=== PATIENT | female | born 1940 | race Caucasian/White ===

== ENCOUNTER 2018-09-15 05:32 | Inpatient (IN) | payer MEDICARE, OTHER ==
[2018-09-09 15:35] LABS: BASOPHILS % (AUTO) 0.6 % (0-1); EOSINOPHILS # (AUTO) 0.2 X10'3 (0-0.9); EOSINOPHILS % (AUTO) 2.6 % (0-6); LYMPHOCYTES # (AUTO) 2.2 X10'3 (1.1-4.8); LYMPHOCYTES % (AUTO) 31.4 % (21-51); MEAN CORPUSCULAR HGB CONC 32.6 % (33.0-36.5); MEAN CORPUSCULAR VOLUME 97.9 FL (78-98); MONOCYTES # (AUTO) 0.6 X10'3 (0-0.9); MONOCYTES % (AUTO) 9.1 % (2-12); NEUTROPHILS % (AUTO) 56.3 % (42-75); PRE OP HEMATOCRIT 41.3 % (35.0-45.0); PRE OP HEMOGLOBIN 13.5 g/dL (12.0-16.0); PRE OP PLATELET COUNT 325 X10'3 (140-440); RED BLOOD COUNT 4.22 X10'6 (4.20-5.60); RED CELL DISTRIBUTION WIDTH 12.5 % (11.5-14.5)
[2018-09-09 15:42] LABS: ALBUMIN 3.7 G/DL (3.4-5.0); ALBUMIN/GLOBULIN RATIO 0.9 (1.1-1.5); ALKALINE PHOSPHATASE 71 IU/L (46-116); BLOOD UREA NITROGEN 16 MG/DL (7-18); BUN/CREATININE RATIO 17.6 (6.6-38.0); CHLORIDE 98 MMOL/L (99-107); CREATININE 0.91 MG/DL (0.40-0.90); PRE OP ALT 21 U/L (30-65); PRE OP ANION GAP 10 (8-16); PRE OP AST 14 U/L (10-37); PRE OP BILIRUB, TOTAL 0.2 MG/DL (0.0-1.0); PRE OP GLUCOSE 93 MG/DL (70-104); PRE OP SODIUM 135 MMOL/L (135-145); TOTAL CARBON DIOXIDE 27.5 MMOL/L (24-32); TOTAL PROTEIN 7.9 G/DL (6.4-8.2); eGFR 60 ML/MIN
[2018-09-09 15:44] LABS: PRE OP POTASSIUM 3.2 MMOL/L (3.4-5.1)
[2018-09-15] VITALS (19 sets, daily range): BP systolic 100–146; BP diastolic 67–87
[~2018-09-15] VITALS: Ht 160 cm; Wt 89.3 kg
[~2018-09-15 05:32] MED LIST: CETI10TA14 PO; CHOL200016 PO; FAMO20TA8 PO; HYDR50TA3 PO; IBUP-1984 PO; LEVO25TA7 PO; VANCOMYCIN INJ 1000 MG in NORMAL SALINE 250ml IV.SOLN IV ONE; cefazolin/dext.iso 2gm/100 ML IV ONE; famotidine 20mg tablet PO ONE; ringers solution, lacted 1,000 ML IV SCH; tranexamic acid inj. 1,000 MG in normal saline 100 ML IV ONE
[2018-09-15 06:36] LABS: ISTAT CREATININE 0.9 mg/dL (0.6-1.1); ISTAT HGB 13.3 g/dl (12.0-16.0); ISTAT IONIZED CALCIUM 1.25 mmol/L (1.03-1.32)
[2018-09-15] MEDS ORDERED: ceFAZolin 1000mg inj ONE (06:47)
[2018-09-15] MEDS ORDERED: cloNIDine hcl/PF 100mcg/ml inj ONE (07:17)
[2018-09-15] MEDS ORDERED: ROPIVAcaine 0.5% (5mg/ml) 30ml vial ONE (07:18)
[2018-09-15] MEDS ORDERED: tetracaine 1% (10mg/ml) pres. free inj. ONE (07:18)
[2018-09-15] MEDS ORDERED: MIDAZolam 1mg/ml 10ml vial ONE (07:19)
[2018-09-15] MEDS ORDERED: fentaNYL/PF 50MCG/1 ML 2ML syringe ONE (07:20)
[2018-09-15] MEDS ORDERED: BUPIVAcaine/dex-water/PF 7.5 mg/ml 2ml ampul ONE (07:21)
[2018-09-15] MEDS ORDERED: propofol inj 20 ML IV ONE (07:46)
[2018-09-15] MEDS ORDERED: ringers solution, lacted 1,000 ML IV SCH (08:22)
[2018-09-15] MEDS ORDERED: proCHLORperazine 10 MG/2 ml inj IV PRN (08:25)
[2018-09-15] MEDS ORDERED: morphine 4 MG/ML inj SYRINge IV PRN ×2 (08:25)
[2018-09-15] MEDS ORDERED: meperidine/PF 25mg/ml syringe IV PRN ×3 (08:25)
[2018-09-15] MEDS ORDERED: ondansetron/PF 4mg/2ml inj IV PRN ×2 (08:25→10:10)
--- NOTE | 2018-09-15 10:05 | NUR ---
Received from OR via bed, accompanied by Anesthesiologist. Report received. Initial physical assessment done and recorded.
[2018-09-15] MEDS ORDERED: magnesium hydroxide 30ml (MOM) UD suspension PO PRN (10:10)
[2018-09-15] MEDS ORDERED: acetaminophen 325mg tablet PO PRN (10:10)
[2018-09-15] MEDS ORDERED: diphenhydrAMINE 25mg capsule PO PRN ×2 (10:10)
[2018-09-15] MEDS ORDERED: bisacodyl 10mg suppository rectal RC PRN (10:10)
[2018-09-15] MEDS ORDERED: HYDROcodone/acetaminophen 10/325mg tab PO PRN (10:10)
--- NOTE | 2018-09-15 11:05 | NUR ---
Discharge criteria met, report to receiving floor. Transferred to room in stable condition.
[2018-09-15] MEDS: potassium Cl 20mEq in NS 1,000 ML IV SCH (11:54)
[2018-09-15] MEDS: HYDROcodone/acetaminophen 10/325mg tab PO PRN ×3 (12:25→21:33)
[2018-09-15] MEDS: ceFAZolin 1GM/D5W- ADD-VANTAGE 50 ML IV SCH (15:25)
[2018-09-15] MEDS: HYDROmorphone inj. 0.5 MG/0.5 ML DISP.SYRIN IV PRN (15:25)
[2018-09-15] MEDS: aspirin 81mg tablet.DR PO SCH (17:32)
--- NOTE | 2018-09-15 18:05 | NUR ---
Problems reprioritized. Patient report given, questions answered & plan of care reviewed with Hazel DAS.
--- NOTE | 2018-09-15 18:30 | NUR ---
Patient in room ORTHO 4021. I have received report from aba Meade and had the opportunity to ask questions and assume patient care.
[2018-09-15] MEDS ORDERED: vancomycin/NS 1 GM ADD-VANTAGE 250 ML IV SCH (20:00)
[2018-09-15] MEDS: famotidine 20mg tablet PO SCH (20:20)
[2018-09-15] MEDS: sennosides 8.6mg tablet PO SCH (20:20)
[2018-09-16] MEDS: ceFAZolin 1GM/D5W- ADD-VANTAGE 50 ML IV SCH (00:17)
[2018-09-16] MEDS: HYDROcodone/acetaminophen 10/325mg tab PO PRN ×5 (01:31→19:58)
[2018-09-16] MEDS: potassium Cl 20mEq in NS 1,000 ML IV SCH ×2 (01:32→12:50)
[2018-09-16 02:09] VITALS: BP 120/81
--- NOTE | 2018-09-16 06:31 | NUR ---
Problems reprioritized. Patient report given, questions answered & plan of care reviewed with PIPPA BARTH.
--- NOTE | 2018-09-16 06:34 | NUR ---
Received report from Hazel DAS
[2018-09-16 06:36] LABS: BASOPHILS % (AUTO) 0.1 % (0-1); EOSINOPHILS # (AUTO) 0.1 X10'3 (0-0.9); EOSINOPHILS % (AUTO) 1.1 % (0-6); HEMATOCRIT 31.1 % (35.0-45.0); HEMOGLOBIN 10.7 g/dl (12.0-16.0); LYMPHOCYTES # (AUTO) 1.2 X10'3 (1.1-4.8); LYMPHOCYTES % (AUTO) 10.3 % (21-51); MEAN CORPUSCULAR HEMOGLOBIN 33.7 PG (27.0-31.0); MEAN CORPUSCULAR HGB CONC 34.3 % (33.0-36.5); MEAN CORPUSCULAR VOLUME 98.2 FL (78-98); MEAN PLATELET VOLUME 8.8 FL (7.4-10.4); MONOCYTES % (AUTO) 8.6 % (2-12); NEUTROPHILS # (AUTO) 9.1 X10'3 (1.8-7.7); NEUTROPHILS % (AUTO) 79.9 % (42-75); PLATELET COUNT 259 X10'3 (140-440); RED BLOOD COUNT 3.17 X10'6 (4.20-5.60); RED CELL DISTRIBUTION WIDTH 13.5 % (11.5-14.5); WHITE BLOOD COUNT 11.4 X10'3 (4.5-11.0)
[2018-09-16 06:54] LABS: ALANINE AMINOTRANSFERASE 16 U/L (12-78); ALBUMIN 2.8 G/DL (3.4-5.0); ALBUMIN/GLOBULIN RATIO 0.8 (1.1-1.5); ALKALINE PHOSPHATASE 51 IU/L (46-116); ANION GAP 10 (8-16); ASPARTATE AMINO TRANSFERASE 14 U/L (10-37); BILIRUBIN,TOTAL 0.3 MG/DL (0.1-1.0); BLOOD UREA NITROGEN 14 MG/DL (7-18); BUN/CREATININE RATIO 14.1 (6.6-38.0); CALCIUM 8.2 MG/DL (8.5-10.1); CHLORIDE 103 MMOL/L (99-107); CREATININE 0.99 MG/DL (0.40-0.90); GLUCOSE 123 MG/DL (70-104); POTASSIUM 4.4 MMOL/L (3.5-5.1); SODIUM 138 MMOL/L (135-145); TOTAL CARBON DIOXIDE 25.2 MMOL/L (24-32); TOTAL PROTEIN 6.2 G/DL (6.4-8.2); eGFR 54 ML/MIN
[2018-09-16] MEDS: cetirizine 10mg tablet PO SCH (07:34)
[2018-09-16] MEDS: aspirin 81mg tablet.DR PO SCH ×2 (07:34→18:30)
[2018-09-16] MEDS: famotidine 20mg tablet PO SCH ×2 (07:35→19:59)
[2018-09-16] MEDS: levoTHYROXINE 25mcg tablet PO SCH (07:35)
[2018-09-16] MEDS: HYDROchlorothiazide 25mg tablet PO SCH (07:35)
[2018-09-16 08:47] VITALS: BP 112/69
[2018-09-16 10:00] VITALS: BP 119/80
--- NOTE | 2018-09-16 11:07 | NUR ---
Joint replacement consult: Pt not in room working w/ PT during RD visit; written/verbal high protein ed w/ RD contact information left at bedside. Will monitor for additional reinforcement needs post-op. Addendum: 09/16/18 at [address] Amended: Links added.
[2018-09-16] MEDS: HYDROmorphone inj. 0.5 MG/0.5 ML DISP.SYRIN IV PRN (16:13)
[2018-09-16 18:00] VITALS: BP 132/87
--- NOTE | 2018-09-16 18:30 | NUR ---
Patient in room ORTHO 4021. I have received report from aba Villasenor and had the opportunity to ask questions and assume patient care.
[2018-09-16] MEDS: sennosides 8.6mg tablet PO SCH (20:00)
[2018-09-16 22:00] VITALS: BP 142/98
--- NOTE | 2018-09-16 22:30 | NUR ---
left message at Dr Miles's answering service regarding pt's pain/spasm and anxiety. waiting for call back.
[2018-09-16] MEDS ORDERED: ketorolac trometh. 30mg/ml inj. IM SCH (22:40)
--- NOTE | 2018-09-16 23:20 | NUR ---
still waiting for pharmacy to verify toradol.
[2018-09-16] MEDS: ketorolac trometh. 30mg/ml inj. IV SCH (23:21)
--- NOTE | 2018-09-16 23:23 | NUR ---
pt refused scd due to pressure/pain
--- NOTE | 2018-09-17 00:16 | NUR ---
pt refused pain med for now. "i don't want to take any more pain med." pt looks painful and still having spasm but she states pain is better. i recommended to take at least one norco but pt refused. i'll take in the morning. will continue to monitor.
--- NOTE | 2018-09-17 01:32 | NUR ---
PHARMACY ADVISED TO SKIP 0200 TORADOL SINCE PT RECEIVED AT 2320.
[2018-09-17] MEDS: ketorolac trometh. 30mg/ml inj. IV SCH ×4 (01:33→20:34)
[2018-09-17] MEDS: potassium Cl 20mEq in NS 1,000 ML IV SCH (02:10)
[2018-09-17] MEDS: HYDROcodone/acetaminophen 10/325mg tab PO PRN (05:20)
[2018-09-17 05:58] LABS: BASOPHILS % (AUTO) 0.3 % (0-1); EOSINOPHILS # (AUTO) 0.1 X10'3 (0-0.9); EOSINOPHILS % (AUTO) 0.9 % (0-6); HEMATOCRIT 28.5 % (35.0-45.0); HEMOGLOBIN 9.7 g/dl (12.0-16.0); LYMPHOCYTES # (AUTO) 2.1 X10'3 (1.1-4.8); LYMPHOCYTES % (AUTO) 20.1 % (21-51); MEAN CORPUSCULAR HEMOGLOBIN 33.2 PG (27.0-31.0); MEAN CORPUSCULAR VOLUME 97.8 FL (78-98); MEAN PLATELET VOLUME 9.1 FL (7.4-10.4); MONOCYTES # (AUTO) 1.4 X10'3 (0-0.9); MONOCYTES % (AUTO) 13.7 % (2-12); NEUTROPHILS # (AUTO) 6.9 X10'3 (1.8-7.7); PLATELET COUNT 219 X10'3 (140-440); RED BLOOD COUNT 2.91 X10'6 (4.20-5.60); RED CELL DISTRIBUTION WIDTH 13.1 % (11.5-14.5); WHITE BLOOD COUNT 10.6 X10'3 (4.5-11.0)
[2018-09-17 06:00] VITALS: BP 118/73
[2018-09-17 06:18] LABS: ALANINE AMINOTRANSFERASE 14 U/L (12-78); ALBUMIN 2.6 G/DL (3.4-5.0); ALBUMIN/GLOBULIN RATIO 0.8 (1.1-1.5); ALKALINE PHOSPHATASE 48 IU/L (46-116); ANION GAP 7 (8-16); ASPARTATE AMINO TRANSFERASE 13 U/L (10-37); BILIRUBIN,TOTAL 0.4 MG/DL (0.1-1.0); BLOOD UREA NITROGEN 11 MG/DL (7-18); BUN/CREATININE RATIO 11.3 (6.6-38.0); CALCIUM 8.1 MG/DL (8.5-10.1); CHLORIDE 99 MMOL/L (99-107); CREATININE 0.97 MG/DL (0.40-0.90); GLUCOSE 98 MG/DL (70-104); POTASSIUM 3.3 MMOL/L (3.5-5.1); SODIUM 134 MMOL/L (135-145); TOTAL CARBON DIOXIDE 28.2 MMOL/L (24-32); eGFR 55 ML/MIN
--- NOTE | 2018-09-17 06:26 | NUR ---
Problems reprioritized. Patient report given, questions answered & plan of care reviewed with PIPPA URIBE.
--- NOTE | 2018-09-17 06:50 | NUR ---
Patient in room ORTHO 4021. I have received report from Hazel DAS and had the opportunity to ask questions and assume patient care.
[2018-09-17] MEDS ORDERED: potassium Cl 20 mEq SR tablet PO PRN ×2 (07:00→07:15)
[2018-09-17] MEDS ORDERED: POTASSIUM 40MEQ/500ML NS *****PERIPHERAL LINE REPLACE IV PRN (07:15)
[2018-09-17] MEDS ORDERED: [UNRECOGNIZED DRUG - REMARK] IV SCH (08:00)
[2018-09-17] MEDS: levoTHYROXINE 25mcg tablet PO SCH (08:03)
[2018-09-17] MEDS: potassium Cl 20 mEq SR tablet PO PRN ×3 (08:03→17:01)
[2018-09-17] MEDS: cetirizine 10mg tablet PO SCH (08:04)
[2018-09-17] MEDS: aspirin 81mg tablet.DR PO SCH ×2 (08:05→17:01)
[2018-09-17] MEDS: famotidine 20mg tablet PO SCH ×2 (08:05→20:33)
[2018-09-17 10:00] VITALS: BP 100/70
--- NOTE | 2018-09-17 11:21 | NUR ---
Pt seen by ANTONINO for verbal high protein ed reinforcement w/ RD contact information provided. Declines additional proteins at this time. Addendum: 09/17/18 at [address] Amended: Links added.
[2018-09-17] MEDS: HYDROchlorothiazide 25mg tablet PO SCH (12:07)
[2018-09-17 15:00] VITALS: BP 119/73
[2018-09-17 18:00] VITALS: BP 117/69
--- NOTE | 2018-09-17 18:15 | NUR ---
Patient in room ORTHO 4021. I have received report from aba Alex and had the opportunity to ask questions and assume patient care.
--- NOTE | 2018-09-17 18:26 | NUR ---
Problems reprioritized. Patient report given, questions answered & plan of care reviewed with raissa DAS.
[2018-09-17] MEDS: sennosides 8.6mg tablet PO SCH (20:33)
[2018-09-17 22:00] VITALS: BP 130/79
[2018-09-18 06:00] VITALS: BP 129/79
--- NOTE | 2018-09-18 06:00 | NUR ---
Patient in room ORTHO 4021. I have received report from Hazel DAS and had the opportunity to ask questions and assume patient care.
[2018-09-18] MEDS: HYDROcodone/acetaminophen 10/325mg tab PO PRN ×2 (06:07→11:02)
--- NOTE | 2018-09-18 06:30 | NUR ---
Problems reprioritized. Patient report given, questions answered & plan of care reviewed with PIPPA FARFAN.
[2018-09-18 07:06] LABS: ALANINE AMINOTRANSFERASE 14 U/L (12-78); ALBUMIN 2.6 G/DL (3.4-5.0); ALBUMIN/GLOBULIN RATIO 0.7 (1.1-1.5); ALKALINE PHOSPHATASE 70 IU/L (46-116); ANION GAP 9 (8-16); ASPARTATE AMINO TRANSFERASE 18 U/L (10-37); BILIRUBIN,TOTAL 0.5 MG/DL (0.1-1.0); BLOOD UREA NITROGEN 18 MG/DL (7-18); BUN/CREATININE RATIO 15.8 (6.6-38.0); CALCIUM 8.4 MG/DL (8.5-10.1); CHLORIDE 99 MMOL/L (99-107); CREATININE 1.14 MG/DL (0.40-0.90); GLUCOSE 106 MG/DL (70-104); POTASSIUM 4.2 MMOL/L (3.5-5.1); SODIUM 133 MMOL/L (135-145); TOTAL CARBON DIOXIDE 24.7 MMOL/L (24-32); TOTAL PROTEIN 6.5 G/DL (6.4-8.2); eGFR 46 ML/MIN
[2018-09-18] MEDS: cetirizine 10mg tablet PO SCH (07:17)
[2018-09-18] MEDS: HYDROchlorothiazide 25mg tablet PO SCH (07:17)
[2018-09-18] MEDS: levoTHYROXINE 25mcg tablet PO SCH (07:17)
[2018-09-18] MEDS: famotidine 20mg tablet PO SCH (07:17)
[2018-09-18] MEDS: aspirin 81mg tablet.DR PO SCH (07:17)
[2018-09-18 09:18] LABS: BASOPHILS % (AUTO) 0 % (0-1); EOSINOPHILS % (AUTO) 0.1 % (0-6); HEMOGLOBIN 11.3 g/dl (12.0-16.0); LYMPHOCYTES # (AUTO) 1.1 X10'3 (1.1-4.8); LYMPHOCYTES % (AUTO) 7.3 % (21-51); MEAN CORPUSCULAR HEMOGLOBIN 33.5 PG (27.0-31.0); MEAN CORPUSCULAR HGB CONC 34.1 % (33.0-36.5); MEAN CORPUSCULAR VOLUME 98.3 FL (78-98); MONOCYTES % (AUTO) 6.8 % (2-12); NEUTROPHILS % (AUTO) 85.8 % (42-75); PLATELET COUNT 271 X10'3 (140-440); RED BLOOD COUNT 3.36 X10'6 (4.20-5.60); RED CELL DISTRIBUTION WIDTH 13.6 % (11.5-14.5); WHITE BLOOD COUNT 15.1 X10'3 (4.5-11.0)
--- NOTE | 2018-09-18 12:03 | NUR ---
Patient discharged to [facility] today at 11:55. Patient stable for transfer, all belongings sent with patient, IV taken out. ON-Q pump discontinued. Report called to Meryl at [facility]
== END 2018-09-18 11:45 | DRG 470 ==
LOC: PAS IN 05:32 → EDSTATUS 07:30 → ORTHO 4S 11:15
PROVIDERS: ADMIT Orthopaedic Surgery; ATTEND Orthopaedic Surgery
PROC: 3E0T3BZ Introduction of Anesthetic Agent into Peripheral Nerves and Plexi, Percutaneous Approach (ICD-10-PCS; 2018-09-15)
PROC: 0SRC0J9 Replacement of Right Knee Joint with Synthetic Substitute, Cemented, Open Approach (ICD-10-PCS; principal; 2018-09-15 07:21)
DX: M17.11 Unilateral primary osteoarthritis, right knee (principal); D62 Acute posthemorrhagic anemia; E03.9 Hypothyroidism, unspecified; I10 Essential (primary) hypertension; K21.9 Gastro-esophageal reflux disease without esophagitis; E66.9 Obesity, unspecified; M25.761 Osteophyte, right knee; R19.7 Diarrhea, unspecified; Z96.652 Presence of left artificial knee joint; Z79.890 Hormone replacement therapy; Z79.899 Other long term (current) drug therapy; Z88.6 Allergy status to analgesic agent; Z68.34 Body mass index [BMI] 34.0-34.9, adult
CPT/HCPCS: 36415; 80047; 80053; 84443; 85025; 85610; 85730; 86885; 86900; 86901; 86920; 87070; 93005; 97110; 97116; 97161; 97530; A6454; A7000; C1713; C1758; C1776; G0378; J0690; J0735; J1170; J1885; J2250; J2405; J2704; J2795; J3010; J3370; J3490; J7030; J7120; Q0163